=== PATIENT | male | born 1970 | race Caucasian/White ===

== ENCOUNTER 2018-12-13 07:22 | Emergency (ER) | payer SELFPAY ==
[~2018-12-13] VITALS: Wt 60.0 kg
[2018-12-13 07:24] VITALS: BP 138/80; PULSE 90; RESP 18
[2018-12-13] MEDS ORDERED: KETOROLAC 60 MG INJ IM STA (08:11)
[2018-12-13] MEDS ORDERED: TRAM50TA2 PO (09:29)
[2018-12-13] MEDS ORDERED: IBUP-1542 PO (09:29)
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
== END 2018-12-13 09:47 | disposition home or self-care (01) ==
LOC: FTE 07:22
DX: R07.81 Pleurodynia (principal)
CPT/HCPCS: 71100; 72100; 96372; 99284; J1885